=== PATIENT | male | born 1970 | race Caucasian/White ===

== ENCOUNTER 2023-10-15 20:27 | Emergency (ER) | payer SELFPAY ==
[~2023-10-15] VITALS: Ht 172.7 cm; Wt 74.1 kg
[2023-10-15] MEDS ORDERED: CLIN300C54 PO (20:34)
[2023-10-15] MEDS: CefTRIAXone 1000mg IM Kit (w/lidocaine diluent) IM ONE (20:50)
[2023-10-15 21:01] VITALS: BP 134/79; PULSE 77; RESP 16; TEMP 98.4; O2SAT 98
== END 2023-10-15 21:03 ==
LOC: ER 20:28 → EDBD 20:28 → ER 21:03
DX: L03.116 Cellulitis of left lower limb (principal); Z79.2 Long term (current) use of antibiotics
CPT/HCPCS: 96372; 99283; J0696